=== PATIENT | male | born 1985 | race Hispanic/Latino ===

== ENCOUNTER 2021-08-22 16:13 | Emergency (ER) | payer SELFPAY ==
[~2021-08-22] VITALS: Ht 177.8 cm; Wt 106.0 kg
[~2021-08-22 16:13] MED LIST: CEPHALEXIN500 M1 PO; CLARITIN10 M1 PO; FLEXERIL PO; ULTRAM50 M1 PO
[2021-08-22] MEDS ORDERED: BACTRIM DS1 TAB PO (17:18)
[2021-08-22] MEDS ORDERED: KEFLEX500 MG PO (17:18)
[2021-08-22 18:01] VITALS: BP 147/86
== END 2021-08-22 18:15 | disposition home or self-care (01) | DRG 603 ==
LOC: ED 16:13
DX: L02.11 Cutaneous abscess of neck (principal); B95.62 Methicillin resistant Staphylococcus aureus infection as the cause of diseases classified elsewhere